=== PATIENT | male | born 1965 | race Caucasian/White ===

== ENCOUNTER 2018-07-19 11:02 | Emergency (ER) | payer BC ==
[2018-07-19] MEDS ORDERED: Morphine VIAL* 10 MG/ML 1 ML VIAL IV ONE ×2 (11:14→12:44)
[2018-07-19] MEDS ORDERED: Ketorolac INJ* 30 MG/ML 1 ML VIAL IV PUSH ONE (11:14)
[2018-07-19] MEDS ORDERED: NS 0.9% 1000 ML** 1,000 ML IV ONE ×2 (11:14→12:46)
[2018-07-19] MEDS ORDERED: Ondansetron INJ* 2 MG/ML VIAL IV ONE (11:14)
[2018-07-19 11:45] LABS: ABS Basophils 0 10^3/ul (0-0.2); ABS Eosinophils 0.1 10^3/ul (0-0.6); ABS Lymphocytes 1.2 10^3/ul (1.0-4.8); ABS Monocytes 0.5 10^3/ul (0-0.8); ABS Neutrophils 5.5 10^3/ul (1.5-7.7); ABS Nucleated RBC 0 10^3/ul; Eosinophil % 1.3 %; Hematocrit 39 % (42-52); Hemoglobin 13.4 g/dl (14.0-18.0); Lymphocyte % 16.2 %; Mean Corpuscular HGB Conc 34 g/dl (31-36); Mean Corpuscular Hemoglobin 29 pg (27-31); Mean Corpuscular Volume 85 fL (80-94); Mean Platelet Volume 8.3 fL (7.4-10.4); Nucleated Red Blood Cells % 0.1; Platelet Count 181 10^3/ul (150-450); Red Blood Count 4.59 10^6/ul (4.00-5.40); Red Cell Distribution Width 13 % (10.5-15); White Blood Count 7.3 10^3/ul (3.5-10.8)
--- NOTE | 2018-07-19 12:04 | ED ---
GI/ HPI - HPI Summary HPI Summary: 53-year-old male presents with right flank pain today. States the pain started all of a sudden. He states that is radiates to the right side of his abdomen. Denies any chest pain or shortness breath. he has never had this pain before. He admits to nausea and vomiting. No diarrhea or constipation. he is able to urinate without any difficulty. No blood in his urine. Denies any history of kidney stones. No previous abdominal surgeries. Has no medical conditions. He has not tried anything for his symptoms. denies any fevers. no injury. no loss of bowel or bladder or saddle anesthesia. - History of Current Complaint Chief Complaint: EDFlankPain Time Seen by Provider: 07/19/18 11:11 Stated Complaint: RIGHT SIDE FLANK PAIN Pain Intensity: 10 - Allergy/Home Medications Allergies/Adverse Reactions: Allergies Allergy/AdvReac Type Severity Reaction Status Date / Time No Known Allergies Allergy Verified 07/19/18 11:03 Home Medications: Home Medications Multivitamins/Minerals TAB* 1 tab PO DAILY 07/19/18 [History Confirmed 07/19/18] PMH/Surg Hx/FS Hx/Imm Hx Endocrine/Hematology History: Denies: Hx Diabetes Cardiovascular History: Denies: Hx Hypertension, Hx Pacemaker/ICD History: Denies: Hx Renal Disease Sensory History: Denies: Hx Hearing Aid Psychiatric History: Denies: Hx Panic Disorder - Surgical History Surgery Procedure, Year, and Place: TAL 2002, RT KNEE MENISCUS REPAIR Infectious Disease History: No Infectious Disease History: Denies: Traveled Outside the [place] in Last 30 Days - Family History Known Family History: Positive: Non-Contributory - Social History Alcohol Use: Rare Substance Use Type: Reports: None Smoking Status (MU): Never Smoked Tobacco Review of Systems Negative: Fever Negative: Chest Pain Negative: Shortness Of Breath Positive: Vomiting, Nausea. Negative: Abdominal Pain Positive: flank pain All Other Systems Reviewed And Are Negative: Yes Physical Exam Triage Information Reviewed: Yes Vital Signs On Initial Exam: Initial Vitals Temp Pulse Resp BP Pulse Ox 96.8 F 71 20 200/112 98 07/19/18 11:03 07/19/18 11:03 07/19/18 11:03 07/19/18 11:03 07/19/18 11:03 Vital Signs Reviewed: Yes Appearance: Positive: Pain Distress Skin: Positive: Warm, Dry Head/Face: Positive: Normal Head/Face Inspection Eyes: Positive: Normal, Conjunctiva Clear ENT: Positive: Pharynx normal Respiratory/Lung Sounds: Positive: Clear to Auscultation, Breath Sounds Present Cardiovascular: Positive: Normal, RRR Abdomen Description: Positive: Soft, CVA Tenderness (R), Other: - tenderness right side abd, Bowel Sounds: Positive: Present Musculoskeletal: Positive: Normal Neurological: Positive: Normal Psychiatric: Positive: Normal Diagnostics - Vital Signs Vital Signs Temp Pulse Resp BP Pulse Ox 07/19/18 11:27 24 07/19/18 11:03 96.8 F 71 20 200/112 98 - Laboratory Lab Results: Lab Results 07/19/18 Range/Units 11:36 WBC 7.3 (3.5-10.8) 10^3/ul RBC 4.59 (4.00-5.40) 10^6/ul Hgb 13.4 L (14.0-18.0) g/dl Hct 39 L (42-52) % MCV 85 (80-94) fL MCH 29 (27-31) pg MCHC 34 (31-36) g/dl RDW 13 (10.5-15) % Plt Count 181 (150-450) 10^3/ul MPV 8.3 (7.4-10.4) fL Neut % (Auto) 75.3 % Lymph % (Auto) 16.2 % Pitkin % (Auto) 6.9 % Eos % (Auto) 1.3 % Baso % (Auto) 0.3 % Absolute Neuts (auto) 5.5 (1.5-7.7) 10^3/ul Absolute Lymphs (auto) 1.2 (1.0-4.8) 10^3/ul Absolute Monos (auto) 0.5 (0-0.8) 10^3/ul Absolute Eos (auto) 0.1 (0-0.6) 10^3/ul Absolute Basos (auto) 0 (0-0.2) 10^3/ul Absolute Nucleated RBC 0 10^3/ul Nucleated RBC % 0.1 Result Diagrams: 07/19/18 11:36 07/19/18 11:36 Lab Statement: Any lab studies that have been ordered have been reviewed, and results considered in the medical decision making process. - CT abd CT Interpretation Completed By: Radiologist Summary of CT Findings: IMPRESSION: #. A few punctate 1 -- 2 mm RIGHT kidney calyceal stones are noted. Negative for. hydronephrosis. #. Normal appendix documented. #. Mild colonic diverticulosis without findings of acute diverticulitis. Re-Evaluation - Re-Evaluation First Eval Re-Evaluation Time: 13:08 Change: Improved Comment: pain better with morphine GIGU Course/Dx - Course Course Of Treatment: 53-year-old male presents with right flank pain today. States the pain started all of a sudden. He states that is radiates to the right side of his abdomen. Denies any chest pain or shortness breath. he has never had this pain before. He admits to nausea and vomiting. No diarrhea or constipation. She is able to urinate without any difficulty. No blood in his urine. Denies any history of kidney stones. No previous abdominal surgeries. Has no medical conditions. He has not tried anything for his symptoms. on exam tenderness right flank and right side abd. patient is pacing the room. wbc normal. crp normal. ct shows renal stones no obstruction. urine shows no infection. patient pain is resolved. likely passed a stone already. told to take tyenlol or ibuprofen. gave referral to urology as needed. patient understand and agrees with plan. - Diagnoses Differential Diagnoses - Male: Pyelonephritis, Ureteral Calculi, Urinary Tract Infection Provider Diagnoses: Flank pain Discharge - Sign-Out/Discharge Documenting (check all that apply): Patient Departure Patient Received Moderate/Deep Sedation with Procedure: No - Discharge Plan Condition: Good Disposition: HOME Patient Education Materials: Flank Pain (ED) Referrals: Rubén Kong MD [Primary Care Provider] - Carmelo Dickens MD [Medical Doctor] - Additional Instructions: take Tylenol or ibuprofen for pain every 6 hours drink plenty of fluids follow up with primary a referral to urology was given Return to ED if develop any new or worsening symptoms - Billing Disposition and Condition Condition: GOOD Disposition: Home
[2018-07-19 12:05] LABS: Albumin 4.3 g/dL (3.2-5.2); Albumin/Globulin Ratio 1.9 (1-3); BUN/Creatinine Ratio 19.6 (8-20); C Reactive Protein 1.32 mg/L (<8.01); Calcium 9.2 mg/dL (8.6-10.3); EGFR Non-African American 68.6 (>60); Globulin 2.3 g/dL (2-4); Potassium 4.7 mmol/L (3.5-5.0); Total Bilirubin 0.5 mg/dL (0.2-1.0); Total Protein 6.6 g/dL (6.4-8.9)
[2018-07-19 14:17] LABS: Urine Appearance Clear; Urine Bilirubin Negative (Negative); Urine Blood Negative (Negative); Urine Color Yellow; Urine Glucose Negative (Negative); Urine Ketones Negative (Negative); Urine Nitrite Negative (Negative); Urine Protein Negative (Negative); Urine Specific Gravity 1.021 (1.010-1.030); Urine Urobilinogen Negative (Negative)
[2018-07-19 14:28] VITALS: BP 179/99
== END 2018-07-19 14:27 | disposition home or self-care (01) ==
LOC: ED 11:02
DX: R10.9 Unspecified abdominal pain (principal)
CPT/HCPCS: 36415; 74176; 80053; 81003; 83690; 85025; 86140; 96361; 96374; 96375; 96376; 99282; J1885; J2270; J2405